=== PATIENT | male | born 1985 | race Caucasian/White ===

== ENCOUNTER 2017-12-08 07:41 | Emergency (ER) | payer SELFPAY ==
[~2017-12-08] VITALS: Ht 157.5 cm; Wt 86.0 kg
[2017-12-08] MEDS ORDERED: GuaiFENesin/D-METHORPHAN [SUGAR-FREE] 200-20MG/10 ML SYRUP UDCUP PO ONE (08:45)
[2017-12-08] MEDS ORDERED: ACETAMINOPHEN 500 MG TABLET PO ONE (08:45)
[2017-12-08 09:00] VITALS: BP 132/78
== END 2017-12-08 09:06 | disposition home or self-care (01) ==
LOC: EMS 07:43
DX: J40 Bronchitis, not specified as acute or chronic (principal); J06.9 Acute upper respiratory infection, unspecified; F17.210 Nicotine dependence, cigarettes, uncomplicated; Z88.8 Allergy status to other drugs, medicaments and biological substances
CPT/HCPCS: 99283; 99406

== ENCOUNTER 2018-05-17 15:27 | Emergency (ER) | payer OTHER ==
[~2018-05-17] VITALS: Ht 165.1 cm; Wt 8.6 kg
[2018-05-17] MEDS ORDERED: FOLI1 PO (16:20)
[2018-05-17] MEDS ORDERED: CYAN1TAB44 PO (16:20)
[2018-05-17] MEDS ORDERED: GABA-531 PO (16:20)
[2018-05-17] MEDS ORDERED: OMEP20 PO (16:20)
[2018-05-17 17:19] LABS: GLUCOSE,POINT OF CARE 104 MG/DL (70-110)
[2018-05-17 17:34] LABS: BASOPHILS % (AUTO) 1.3 % (0.0-2.0); EOSINOPHILS % (AUTO) 6.8 % (1.0-6.0); HEMATOCRIT 45.4 % (41-53); HEMOGLOBIN 15.3 g/dL (13.5-17.5); LYMPHOCYTES # (AUTO) 2.2 K/uL (1.0-4.8); MEAN CORPUSCULAR HGB CONC 33.8 G/dL (31.0-37.0); MEAN CORPUSCULAR VOLUME 92 fL (80-100); MONOCYTES # (AUTO) 0.9 K/uL (0.1-1.0); MONOCYTES % (AUTO) 9.9 % (2.0-9.0); NEUTROPHILS # (AUTO) 5.7 K/uL (1.8-7.7); PLATELET COUNT (AUTO) 350 K/uL (150-450); RED BLOOD CELL COUNT(AUTO) 4.96 MIL/uL (4.50-5.90); RED CELL DISTRIBUTION WIDTH 14.8 % (11.5-14.5)
[2018-05-17 18:07] LABS: ANION GAP 17 mmol/L (8-16); CALCIUM, TOTAL 9.2 mg/dL (8.8-10.5); CARBON DIOXIDE 22 mmol/L (22-29); CHLORIDE 99 mmol/L (98-107); CREATININE 0.93 mg/dL (0.60-1.30); GLOMERULAR FILTR. RATE CALC > 60 mL/min (>60); GLUCOSE,RANDOM 102 mg/dL (70-110); POTASSIUM 3.8 mmol/L (3.5-5.1); SODIUM SERUM 138 mmol/L (136-145); UREA NITROGEN, BLOOD 10 mg/dL (7-18)
[2018-05-17 18:10] LABS: ALANINE AMINOTRANSFERASE 99 U/L (12-78); ALBUMIN 4.3 g/dL (3.4-5.0); ALKALINE PHOSPHATASE 93 U/L (46-116); ASPARTATE AMINOTRANSFERASE 143 U/L (15-37); BILIRUBIN,TOTAL 1.1 mg/dL (0.1-1.0); LIPASE 150 U/L (73-393); TOTAL PROTEIN, SERUM 7.9 g/dL (6.4-8.2)
[2018-05-17] MEDS ORDERED: SODIUM CHLORIDE 0.9% 1,000 ML IV ONE (19:15)
[2018-05-17] MEDS ORDERED: ChlordiazePOXIDE HCL 25 MG CAPSULE PO ONE (19:45)
[2018-05-17 19:57] LABS: APPEARANCE,URINE CLEAR (CLEAR); BILIRUBIN,URINE NEGATIVE (NEGATIVE); GLUCOSE, URINE (UA) NEGATIVE (NEGATIVE); KETONES,URINE 15 mg/dL (NEGATIVE); LEUKOCYTE ESTERASE ,URINE NEGATIVE (NEGATIVE); NITRATE,URINE NEGATIVE (NEGATIVE); OCCULT BLOOD,URINE NEGATIVE (NEGATIVE); PH,URINE 6.5 (5.0-8.0); PROTEIN,URINE POS 1+ (NEGATIVE); UROBILINOGEN,URINE 0.2 mg/dL (<=1.0)
[2018-05-17] MEDS ORDERED: LORazepam 2 MG/ML VIAL IVP ONE (20:15)
[2018-05-17 20:19] LABS: BACTERIA,URINE None Seen /HPF (None Seen); RBC,URINE None Seen /HPF (0-2); SQUAMOUS EPITHELIAL CELL,UR Few /LPF (None Seen); WBC,URINE 0-2 /HPF (0-5)
[2018-05-17 23:00] VITALS: BP 148/87
== END 2018-05-17 23:03 | disposition home or self-care (01) ==
LOC: EMS 15:30
DX: R74.0 Nonspecific elevation of levels of transaminase and lactic acid dehydrogenase [LDH] (principal); F10.10 Alcohol abuse, uncomplicated; R11.2 Nausea with vomiting, unspecified; Z88.8 Allergy status to other drugs, medicaments and biological substances
CPT/HCPCS: 36415; 76705; 80053; 81001; 82962; 83690; 85025; 96361; 96374; 99284; J2060; J7030

== ENCOUNTER 2019-12-25 10:24 | Inpatient (IN) | payer MEDICAID ==
[~2019-12-25] VITALS: Ht 165.1 cm; Wt 76.7 kg
[~2019-12-25 10:24] MED LIST: CYAN1TAB44 PO; FOLI-130 PO; GABA-1181 PO; OMEP20 PO
[2019-12-25] MEDS ORDERED: HALOPERIDOL 5 MG TABLET PO PRN (14:00)
[2019-12-25 15:00] VITALS: BP 106/64
[2019-12-25] MEDS: THIAMINE 100 MG TABLET PO SCH (15:47)
[2019-12-25] MEDS: MULTIVITAMINS WITH MINERALS, THERAPEUTIC TABLET PO SCH (15:47)
[2019-12-25] MEDS: FOLIC ACID 1 MG TABLET PO SCH (15:47)
[2019-12-25] MEDS: LORazepam 2 MG TABLET PO PRN ×3 (15:52→20:42)
[2019-12-25 17:41] VITALS: BP 109/72
[2019-12-25] MEDS: CLOTRIMAZOLE 1% 15 GM CREAM TP SCH (21:25)
[2019-12-25] MEDS: ZOLPIDEM TARTRATE 10 MG TABLET PO PRN (21:43)
[2019-12-26] VITALS (8 sets, daily range): BP systolic 120–132; BP diastolic 73–97
[2019-12-26] MEDS: LORazepam 2 MG TABLET PO PRN (06:32)
[2019-12-26] MEDS ORDERED: CloNIDine HCL 0.1 MG TABLET PO PRN (07:00)
[2019-12-26] MEDS ORDERED: LOPERAMIDE HCL 2 MG CAPSULE PO PRN (07:00)
[2019-12-26] MEDS ORDERED: IBUPROFEN 400 MG TABLET PO PRN (07:00)
[2019-12-26] MEDS ORDERED: ONDANSETRON HCL 4 MG TABLET PO PRN (07:00)
[2019-12-26] MEDS ORDERED: PETROLATUM,WHITE 28 GM JELLY TP PRN (07:00)
[2019-12-26] MEDS ORDERED: LORazepam 2 MG TABLET PO PRN (07:00)
[2019-12-26] MEDS ORDERED: ACETAMINOPHEN 325 MG TABLET PO PRN (07:00)
[2019-12-26] MEDS ORDERED: DOCUSATE SODIUM 100 MG CAPSULE PO PRN (07:00)
[2019-12-26] MEDS ORDERED: MAG HYDROX/AL HYDROX/SIMETH ES 30 ML SUSPENSION UDCUP PO PRN (07:00)
[2019-12-26] MEDS ORDERED: NICOTINE 14 MG/24 HOUR PATCH TD PRN (07:00)
[2019-12-26] MEDS ORDERED: GuaiFENesin/D-METHORPHAN [SUGAR-FREE] 200-20MG/10 ML SYRUP UDCUP PO PRN (07:00)
[2019-12-26] MEDS ORDERED: MAGNESIUM HYDROXIDE SUSPENSION 30 ML UDCUP PO PRN (07:00)
[2019-12-26] MEDS ORDERED: ALBUTEROL SULFATE HFA 90 MCG/PUFF 8 GM INHALER IH PRN (07:00)
[2019-12-26 07:57] LABS: BASOPHILS % (AUTO) 1.7 % (0.0-2.0); EOSINOPHILS % (AUTO) 4.9 % (1.0-6.0); HEMATOCRIT 42.4 % (41-53); HEMOGLOBIN 14.4 g/dL (13.5-17.5); LYMPHOCYTES # (AUTO) 1.9 K/uL (1.0-4.8); LYMPHOCYTES % (AUTO) 36.3 % (22.0-44.0); MEAN CORPUSCULAR HEMOGLOBIN 32.6 pg (26.0-34.0); MEAN CORPUSCULAR HGB CONC 34.1 G/dL (31.0-37.0); MEAN CORPUSCULAR VOLUME 96 fL (80-100); MONOCYTES # (AUTO) 0.6 K/uL (0.1-1.0); MONOCYTES % (AUTO) 12.4 % (2.0-9.0); NEUTROPHILS # (AUTO) 2.3 K/uL (1.8-7.7); NEUTROPHILS % (AUTO) 44.7 % (40.0-70.0); PLATELET COUNT (AUTO) 169 K/uL (150-450); RED BLOOD CELL COUNT(AUTO) 4.42 MIL/uL (4.50-5.90); RED CELL DISTRIBUTION WIDTH 14.3 % (11.5-14.5)
[2019-12-26 08:12] LABS: ALANINE AMINOTRANSFERASE 177 U/L (12-78); ALBUMIN 3.6 g/dL (3.4-5.0); ALKALINE PHOSPHATASE 106 U/L (46-116); ANION GAP 5 mmol/L (8-16); ASPARTATE AMINOTRANSFERASE 263 U/L (15-37); BILIRUBIN,TOTAL 1.2 mg/dL (0.1-1.0); CARBON DIOXIDE 33 mmol/L (22-29); CHLORIDE 102 mmol/L (98-107); CHOLESTEROL 218 mg/dL (131-200); GLOMERULAR FILTR. RATE CALC > 60 mL/min (>60); GLUCOSE,RANDOM 81 mg/dL (70-110); POTASSIUM 3.5 mmol/L (3.5-5.1); SODIUM SERUM 140 mmol/L (136-145); TOTAL PROTEIN, SERUM 6.8 g/dL (6.4-8.2); TRIGLYCERIDES 36 mg/dL (15-150); UREA NITROGEN, BLOOD 9 mg/dL (7-18)
[2019-12-26 08:18] LABS: HEMOGLOBIN A1C 4.8 % (3.8-5.6)
[2019-12-26 08:43] LABS: CHOL/HDL RATIO 1.4 (4.2-7.3); HDL CHOLESTEROL 156 mg/dL (40-60); LDL CHOL (CALC.) 55 mg/dL (0-130)
[2019-12-26] MEDS: FOLIC ACID 1 MG TABLET PO SCH (08:47)
[2019-12-26] MEDS: CLOTRIMAZOLE 1% 15 GM CREAM TP SCH ×2 (08:47→16:51)
[2019-12-26] MEDS: MULTIVITAMINS WITH MINERALS, THERAPEUTIC TABLET PO SCH (08:47)
[2019-12-26] MEDS: LORazepam 2 MG TABLET PO SCH ×4 (08:47→20:06)
[2019-12-26] MEDS: THIAMINE 100 MG TABLET PO SCH (08:47)
[2019-12-26] MEDS: ZOLPIDEM TARTRATE 10 MG TABLET PO PRN (21:07)
[2019-12-27 03:42] VITALS: BP 130/91
[2019-12-27 04:30] VITALS: BP 130/90
[2019-12-27] MEDS: MULTIVITAMINS WITH MINERALS, THERAPEUTIC TABLET PO SCH (08:04)
[2019-12-27] MEDS: FOLIC ACID 1 MG TABLET PO SCH (08:04)
[2019-12-27] MEDS: LORazepam 2 MG TABLET PO SCH ×4 (08:04→20:01)
[2019-12-27] MEDS: THIAMINE 100 MG TABLET PO SCH (08:04)
[2019-12-27 08:06] VITALS: BP 127/77
[2019-12-27] MEDS: CLOTRIMAZOLE 1% 15 GM CREAM TP SCH ×2 (08:06→16:06)
[2019-12-27 08:13] LABS: AMPHET/METH SCREEN,URINE NEGATIVE (NEGATIVE); BARBITURATE SCREEN, URINE NEGATIVE (NEGATIVE); BENZODIAZEPINES SCREEN,URINE NEGATIVE (NEGATIVE); CANNABINOID SCREEN,URINE NEGATIVE (NEGATIVE); COCAINE SCREEN,URINE NEGATIVE (NEGATIVE); METHADONE SCREEN, URINE NEGATIVE (NEGATIVE); OPIATE SCREEN,URINE NEGATIVE (NEGATIVE)
[2019-12-27 08:34] LABS: APPEARANCE,URINE CLEAR (CLEAR); BILIRUBIN,URINE NEGATIVE (NEGATIVE); GLUCOSE, URINE (UA) NEGATIVE (NEGATIVE); KETONES,URINE NEGATIVE (NEGATIVE); LEUKOCYTE ESTERASE ,URINE NEGATIVE (NEGATIVE); NITRATE,URINE NEGATIVE (NEGATIVE); OCCULT BLOOD,URINE NEGATIVE (NEGATIVE); PROTEIN,URINE NEGATIVE (NEGATIVE); UROBILINOGEN,URINE 0.2 mg/dL (<=1.0)
[2019-12-27 08:39] LABS: PHENCYCLIDINE SCREEN,URINE NEGATIVE (NEGATIVE)
[2019-12-27] MEDS: SERTRALINE HCL 50 MG TABLET PO SCH (12:30)
[2019-12-27 13:32] VITALS: BP 111/70
[2019-12-27 16:00] VITALS: BP 120/82
[2019-12-27 16:10] VITALS: BP 120/82
[2019-12-27] MEDS: ZOLPIDEM TARTRATE 10 MG TABLET PO PRN (21:00)
[2019-12-28 00:19] VITALS: BP 140/90
[2019-12-28 00:43] VITALS: BP 140/90
[2019-12-28] MEDS ORDERED: LORazepam 1 MG TABLET PO PRN (07:00)
[2019-12-28] MEDS: SERTRALINE HCL 50 MG TABLET PO SCH (08:19)
[2019-12-28] MEDS: THIAMINE 100 MG TABLET PO SCH (08:20)
[2019-12-28] MEDS: MULTIVITAMINS WITH MINERALS, THERAPEUTIC TABLET PO SCH (08:20)
[2019-12-28] MEDS: FOLIC ACID 1 MG TABLET PO SCH (08:20)
[2019-12-28] MEDS: LORazepam 1 MG TABLET PO SCH ×4 (08:20→20:09)
[2019-12-28] MEDS: CLOTRIMAZOLE 1% 15 GM CREAM TP SCH ×2 (08:21→16:04)
[2019-12-28 09:33] VITALS: BP 119/69
[2019-12-28 09:34] VITALS: BP 119/69
[2019-12-28 16:09] VITALS: BP 133/77
[2019-12-28] MEDS: ZOLPIDEM TARTRATE 10 MG TABLET PO PRN (21:14)
[2019-12-29 05:01] VITALS: BP 130/77
[2019-12-29] MEDS: SERTRALINE HCL 50 MG TABLET PO SCH (08:08)
[2019-12-29] MEDS: FOLIC ACID 1 MG TABLET PO SCH (08:08)
[2019-12-29] MEDS: THIAMINE 100 MG TABLET PO SCH (08:08)
[2019-12-29] MEDS: MULTIVITAMINS WITH MINERALS, THERAPEUTIC TABLET PO SCH (08:08)
[2019-12-29] MEDS: CLOTRIMAZOLE 1% 15 GM CREAM TP SCH ×2 (08:10→16:07)
[2019-12-29 09:59] VITALS: BP 125/74
[2019-12-29] MEDS: LORazepam 1 MG TABLET PO PRN ×2 (16:07→20:25)
[2019-12-29 16:12] VITALS: BP 127/83
[2019-12-29] MEDS: ZOLPIDEM TARTRATE 10 MG TABLET PO PRN (21:32)
[2019-12-30 00:43] VITALS: BP 130/67
[2019-12-30 00:55] VITALS: BP 130/67
[2019-12-30 08:00] VITALS: BP 138/87
[2019-12-30] MEDS: FOLIC ACID 1 MG TABLET PO SCH (08:10)
[2019-12-30] MEDS: THIAMINE 100 MG TABLET PO SCH (08:10)
[2019-12-30] MEDS: SERTRALINE HCL 50 MG TABLET PO SCH (08:10)
[2019-12-30] MEDS: MULTIVITAMINS WITH MINERALS, THERAPEUTIC TABLET PO SCH (08:12)
[2019-12-30] MEDS: CLOTRIMAZOLE 1% 15 GM CREAM TP SCH (08:12)
[2019-12-30 08:27] VITALS: BP 138/87
[2019-12-30] MEDS ORDERED: SERT50TA12 PO (10:53)
[2019-12-30] MEDS ORDERED: CLOT113C TP (10:53)
== END 2019-12-30 12:15 | disposition home or self-care (01) | DRG 751 ==
LOC: B2S 15:09
DX: F33.2 Major depressive disorder, recurrent severe without psychotic features (principal); R45.851 Suicidal ideations; Z88.8 Allergy status to other drugs, medicaments and biological substances; F10.239 Alcohol dependence with withdrawal, unspecified; Y90.8 Blood alcohol level of 240 mg/100 ml or more; K21.9 Gastro-esophageal reflux disease without esophagitis; E78.5 Hyperlipidemia, unspecified; R74.01 Elevation of levels of liver transaminase levels; F19.10 Other psychoactive substance abuse, uncomplicated
CPT/HCPCS: 80307; 83036